=== PATIENT | male | born 2000 | race Caucasian/White ===

== ENCOUNTER 2020-04-12 23:25 | Emergency (ER) | payer MEDICAID ==
[~2020-04-12] VITALS: Ht 180.3 cm; Wt 97.0 kg
[2020-04-12] MEDS ORDERED: ondansetron/PF 4mg/2ml inj IV ONE (23:45)
[2020-04-12] MEDS ORDERED: normal saline 1000ML IV soln IVB ONE (23:45)
--- NOTE | 2020-04-13 00:32 | NUR ---
Spoke with Katty (mother) and she expressed concern re pt. MD made aware and ETOH level ordered. Pt. to be monitored further in the ED at this time.
[2020-04-13 04:33] VITALS: BP 102/56
== END 2020-04-13 04:35 | disposition home or self-care (01) ==
LOC: ER 23:26
DX: F10.129 Alcohol abuse with intoxication, unspecified (principal); Z72.89 Other problems related to lifestyle; Y90.0 Blood alcohol level of less than 20 mg/100 ml
CPT/HCPCS: 36415; 80320; 96361; 96374; 99285; J2405; J7030; 99284